=== PATIENT | female | born 1965 | race Caucasian/White ===

== ENCOUNTER 2017-09-21 23:34 | Emergency (ER) | payer BC ==
[2017-09-22 05:23] VITALS: BP 110/72
== END 2017-09-22 05:23 | disposition home or self-care (01) ==
LOC: ED 23:34
DX: R07.89 Other chest pain (principal); J45.909 Unspecified asthma, uncomplicated; M94.0 Chondrocostal junction syndrome [Tietze]; F41.9 Anxiety disorder, unspecified; F41.0 Panic disorder [episodic paroxysmal anxiety]
CPT/HCPCS: J7613; Q0092

== ENCOUNTER 2018-05-19 21:01 | Emergency (ER) | payer BC ==
[~2018-05-19] VITALS: Ht 170.2 cm; Wt 62.6 kg
[2018-05-19 21:02] VITALS: Ht 170.2 cm; Wt 62.6 kg
[2018-05-19 22:00] LABS: BASOPHIL % 0.5 % (0-2); PLATELET COUNT 200 x10^3mcL (130-400); RED CELL DISTRIBUTION WIDTH 13.6 % (11.5-14.5)
[2018-05-19 22:17] LABS: CALCIUM 9.1 mg/dL (8.5-10.1); CARBON DIOXIDE 27.2 mmol/L (21-32); CHLORIDE SERUM 104 mmol/L (98-107); GFR1 > 60 mL/min; GLUCOSE SERUM 108 mg/dL (74-106); POTASSIUM SERUM 3.2 mmol/L (3.5-5.1); SODIUM SERUM 139 mmol/L (136-145)
[2018-05-19 22:21] LABS: ALBUMIN 3.5 g/dL (3.4-5.0); ALKALINE PHOSPHATASE 76 U/L (46-116); ALT/SGPT 28 U/L (14-59); AST/SGOT 22 U/L (15-37); BILIRUBIN TOTAL 0.5 mg/dL (0.20-1.00); TOTAL PROTEIN, SERUM 7.4 g/dL (6.4-8.2)
[2018-05-19 23:07] LABS: ERYTHROCYTE SED RATE 33 mm/hr (0-30)
[2018-05-19 23:54] VITALS: BP 111/58
== END 2018-05-19 23:54 | disposition home or self-care (01) ==
LOC: ED 21:01
PROVIDERS: Emergency Medicine
DX: R42 Dizziness and giddiness (principal); R07.89 Other chest pain; Z88.2 Allergy status to sulfonamides; Z88.5 Allergy status to narcotic agent
CPT/HCPCS: 36415; J1885; Q0092

== ENCOUNTER 2019-07-20 16:42 | Emergency (ER) | payer BC ==
[~2019-07-20] VITALS: Ht 172.7 cm; Wt 59.4 kg
[2019-07-20 16:58] VITALS: BP 108/69; Ht 172.7 cm; Wt 59.4 kg
== END 2019-07-20 18:51 | disposition home or self-care (01) ==
LOC: ED 16:42
DX: S20.211A Contusion of right front wall of thorax, initial encounter (principal); N39.0 Urinary tract infection, site not specified; Z88.2 Allergy status to sulfonamides; Z88.5 Allergy status to narcotic agent; Z88.1 Allergy status to other antibiotic agents; X58.XXXA Exposure to other specified factors, initial encounter; Y93.89 Activity, other specified; Y92.89 Other specified places as the place of occurrence of the external cause; Y99.8 Other external cause status

== ENCOUNTER 2019-07-23 09:25 | Emergency (ER) | payer BC ==
[~2019-07-23] VITALS: Ht 172.7 cm; Wt 59.9 kg
[2019-07-23 09:36] VITALS: Ht 172.7 cm; Wt 59.9 kg
[2019-07-23 12:33] VITALS: BP 106/66
== END 2019-07-23 12:33 | disposition home or self-care (01) ==
LOC: ED 09:25
DX: S39.91XA Unspecified injury of abdomen, initial encounter (principal); S29.9XXA Unspecified injury of thorax, initial encounter; M19.90 Unspecified osteoarthritis, unspecified site; Z90.710 Acquired absence of both cervix and uterus; Z88.2 Allergy status to sulfonamides; Z88.1 Allergy status to other antibiotic agents; Z88.5 Allergy status to narcotic agent; X58.XXXA Exposure to other specified factors, initial encounter; Y93.89 Activity, other specified; Y92.89 Other specified places as the place of occurrence of the external cause; Y99.8 Other external cause status
CPT/HCPCS: J1885